=== PATIENT | female | born 1930 | race Caucasian/White ===

== ENCOUNTER 2017-05-20 11:51 | Inpatient (IN) ==
[2017-05-20 13:39] LABS: Basophils % 0.5 % (0.0-0.8); Eosinophils # 0.1 10*3/uL (0.0-0.87); Eosinophils % 0.8 % (0.00-10.9); Hematocrit 40.6 VOL% (35.7-47.0); Hemoglobin 14.6 GM/DL (12.0-16.0); Immature Granulocytes % 0.5 %; Immature Granulocytes Absolute 0.03 #; Lymphocytes # 1.8 10*3/uL (1.4-4.0); Lymphocytes % 27.5 % (21.3-54.2); Mean Corpuscular Hemoglobin 33 PG (27-34); Mean Corpuscular Volume 92.5 FL (87-102); Mean Platelet Volume 11.9 FL (9.6-12.0); Monocytes # 0.5 10*3/uL (0.11-0.8); Neutrophils # 4.2 10*3/uL (1.4-7.4); Neutrophils % 63.7 % (38.7-73.9); Platelet Count 198 T/CUMM (130-400); Red Blood Count 4.39 MC/CUMM (3.8-5.5); Red Cell Distribution Width 12.3 % (9.3-17.3); White Blood Count 6.6 T/CUMM (4-12)
[2017-05-20 13:47] LABS: INR 0.9; PT Patient Result 9.9 SECS; Partial Thromboplastin Time 28.8 SECS (0-40)
[2017-05-20 14:04] LABS: Alanine Aminotransferase 26 U/L (13-56); Alkaline Phosphatase 62 U/L (45-117); Aspartate Amino Transferase 25 U/L (0-37); Blood Urea Nitrogen 14 MG/DL (7-18); Calcium 9.7 MG/DL (8.5-10.1); Glucose 104 MG/DL (74-106); Osmolality,Calculated 258.9 MOS/KG (273-304); Potassium 3.4 MMOL/L (3.5-5.1); Sodium 129 MMOL/L (136-145); Total Protein 8.3 G/DL (6.4-8.3); Troponin I Only < 0.015 NG/ML (0.00-0.045)
[2017-05-20] MEDS ORDERED: SODIUM CHLORIDE 0.9% 1,000 ML IV STA (14:07)
[2017-05-20 15:04] LABS: Apearance,Urine CLEAR (Clear); Bilirubin,Urine Negative (Negative); Blood, Urine Negative (Negative); Glucose,Urine (UA) Negative (Negative); Ketones,Urine Negative (Negative); Mucus,Urine Occasional /LPF (Occasional); Nitrite,Urine Negative (Negative); Protein,Urine Negative; RBC,Urine <1 /HPF (0-4); Urine Color Yellow (Yellow); Urine Specific Gravity 1.005 (1.001-1.035); Urine Urobilinogen < 2.0 EU/DL (0.2-1.0); WBC,Urine 2 /HPF (0-6)
[2017-05-20] MEDS ORDERED: ACETAMINOPHEN 325 MG TABLET PO PRN (16:34)
[2017-05-20] MEDS ORDERED: ONDANSETRON 4 MG/2 ML VIAL IV PRN (16:34)
[2017-05-20] MEDS ORDERED: DOCUSATE SODIUM 100 MG CAPSULE PO PRN (16:34)
[2017-05-20] MEDS: amLODIPine 10 MG TABLET PO SCH (17:33)
[2017-05-20] MEDS ORDERED: SODIUM CHLOR 0.9% KCL 20 MEQ 20 MEQ/1,000 ML BAG IV SCH (18:30)
[2017-05-20] MEDS: LISINOPRIL 10 MG TABLET PO SCH (21:06)
[2017-05-20] MEDS: cloNIDine 0.1 MG TABLET PO SCH (21:06)
[2017-05-21 06:42] LABS: Basophils % 0.5 % (0.0-0.8); Eosinophils # 0.1 10*3/uL (0.0-0.87); Eosinophils % 0.9 % (0.00-10.9); Hemoglobin 13.7 GM/DL (12.0-16.0); Immature Granulocytes % 0.2 %; Immature Granulocytes Absolute 0.01 #; Lymphocytes # 1.6 10*3/uL (1.4-4.0); Lymphocytes % 29.1 % (21.3-54.2); Mean Corpuscular HGB Conc 36.1 GM/DL (32-36); Mean Corpuscular Hemoglobin 33 PG (27-34); Mean Platelet Volume 12.1 FL (9.6-12.0); Monocytes # 0.6 10*3/uL (0.11-0.8); Monocytes % 10.9 % (1.7-12.7); Neutrophils # 3.2 10*3/uL (1.4-7.4); Neutrophils % 58.4 % (38.7-73.9); Platelet Count 179 T/CUMM (130-400); Red Blood Count 4.13 MC/CUMM (3.8-5.5); Red Cell Distribution Width 12.5 % (9.3-17.3); White Blood Count 5.5 T/CUMM (4-12)
[2017-05-21 07:18] LABS: Albumin 3.7 G/DL (3.4-5.0); Bilirubin,Total 1.3 MG/DL (0.2-1.0); Calcium 9.2 MG/DL (8.5-10.1); Potassium 3.9 MMOL/L (3.5-5.1); Total Protein 7.2 G/DL (6.4-8.3)
[2017-05-21] MEDS: cloNIDine 0.1 MG TABLET PO SCH (08:52)
[2017-05-21] MEDS: LISINOPRIL 10 MG TABLET PO SCH (08:52)
[2017-05-21] MEDS: amLODIPine 10 MG TABLET PO SCH (08:52)
[2017-05-21 12:22] VITALS: BP 174/77
== END 2017-05-21 14:16 | disposition home health service (06) | DRG 378 ==
LOC: N.ED 11:51 → N.EDINP 14:53 → N.4E 16:35
PROVIDERS: ADMIT Hospitalist; ATTEND Hospitalist